=== PATIENT | female | born 1975 | race Two or more races ===

== ENCOUNTER 2022-07-13 13:52 | Day surgery (SDC) | payer OTHER ==
[~2022-07-13] VITALS: Ht 165.1 cm; Wt 89.4 kg
[~2022-07-13 13:52] MED LIST: PEPCID40 MG PO; PROAIR RESPICL90 MCG IH; SINGULAIR10 MG PO
== END 2022-07-14 | disposition home or self-care (01) ==
LOC: CIR.AMB 13:52
PROVIDERS: ATTEND Obstetrics & Gynecology Obstetrics
DX: R87.613 High grade squamous intraepithelial lesion on cytologic smear of cervix (HGSIL) (principal); Z88.6 Allergy status to analgesic agent; R73.03 Prediabetes